=== PATIENT | female | born 1995 | race Caucasian/White ===

== ENCOUNTER 2018-01-02 04:15 | Inpatient (IN) | payer MEDICAID ==
[~2018-01-02] VITALS: Ht 154.9 cm; Wt 86.2 kg
[2018-01-02] MEDS ORDERED: PNV1TABL76 PO (04:54)
[2018-01-02] MEDS ORDERED: DEXT 5%/LR + PITOCIN 20UNITS/L 1,000 ML IV SCH (04:55)
[2018-01-02] MEDS ORDERED: MISOPROSTOL 100MCG TABLET VG SCH (05:00)
[2018-01-02] MEDS ORDERED: BUTORPHANOL TARTRATE 2 MG/ML VIAL IV PRN (05:00)
[2018-01-02] MEDS ORDERED: CARBOPROST TROMETHAMINE 250 MCG/ML AMPUL IM PRN (05:00)
[2018-01-02] MEDS ORDERED: NALOXONE HCL 0.4 MG/ML 1ML VIAL IM PRN (05:00)
[2018-01-02] MEDS ORDERED: METHYLERGONOVINE MALEATE 0.2 MG/ML IM PRN (05:00)
[2018-01-02] MEDS ORDERED: PENICILLIN G POTASSIUM 5 MMU in DEXT 5% WATER 100 ML IV SCH (05:30)
[2018-01-02] MEDS: LACTATED RINGERS 1,000 ML IV SCH ×2 (06:39→09:03)
[2018-01-02 07:28] LABS: BASOPHILS % 0.2 % (0.0-2.0); EOSINOPHILS % 0.4 % (0.0-5.0); HEMATOCRIT. 34.2 % (36.0-48.0); HEMOGLOBIN. 11.5 g/dL (12.0-16.0); LYMPHOCYTES % 16.9 % (20.0-50.0); MEAN CORPUSCULAR HEMOGLOBIN 29.5 pg (28.0-32.0); MEAN CORPUSCULAR VOLUME 87.8 fL (81.0-99.0); MEAN PLATELET VOLUME 9.2 fl (7.4-10.4); MONOCYTES % 8.4 % (2.0-8.0); NEUTROPHILS % 74.1 % (40.0-76.0); PLATELET 238 x1000/uL (130-400); RED CELL DISTRIBUTION WIDTH 14.4 % (11.6-14.6)
[2018-01-02 08:02] LABS: HEPATITIS B SURFACE ANTIGEN NEGATIVE; RUBELLA IGG 23.1 IU/mL (4.99-10)
[2018-01-02 08:04] LABS: INR 0.9; PARTIAL THROMBOPLASTIN TIME 24.2 sec (23.4-31.0); PROTHROMBIN TIME 9.5 sec (9.1-11.1)
[2018-01-02] MEDS ORDERED: BUPIVACAINE HCL/DEXTROSE/PF 0.75% 2ML AMP INJ ONE (08:52)
[2018-01-02] MEDS ORDERED: PHENYLEPHRINE HCL 10 MG/ML 1ML (IV VIAL) IV ONE (08:53)
[2018-01-02] MEDS ORDERED: EPHEDRINE SULFATE 50MG/ML VIAL ONE (08:53)
[2018-01-02 09:20] LABS: CLARITY URINE TURBID (CLEAR); COLOR URINE YELLOW (YELLOW); KETONES URINE NEGATIVE (NEGATIVE); LEUKOCYTE ESTERASE URINE NEGATIVE (NEGATIVE); NITRITE URINE NEGATIVE (NEGATIVE); OCCULT BLOOD URINE 3+ (NEGATIVE); PROTEIN URINE 2+ (NEGATIVE); SPECIFIC GRAVITY URINE 1.006 (1.005-1.030); UROBILINOGEN URINE 0.2 E.U./dL (0.2-1.0)
[2018-01-02] MEDS ORDERED: FENTANYL CITRATE/PF 50MCG/ML 2ML VIAL ONE (09:34)
[2018-01-02 09:37] LABS: *AMPHETAMINES SCREEN URINE NEGATIVE (NEGATIVE); *BARBITURATES SCREEN URINE NEGATIVE (NEGATIVE)
[2018-01-02 09:38] LABS: *COCAINE SCREEN URINE NEGATIVE (NEGATIVE); CANNABINOID URINE SCREEN NEGATIVE (NEGATIVE); METHADONE URINE SCREEN NEGATIVE (NEGATIVE); OPIATES URINE SCREEN NEGATIVE (NEGATIVE); PHENCYCLIDINE URINE SCREEN NEGATIVE (NEGATIVE)
[2018-01-02 09:47] LABS: *BENZODIAZEPINES SCREEN URINE NEGATIVE (NEGATIVE)
[2018-01-02] MEDS ORDERED: PENICILLIN G POTASSIUM 2.5 MMU in DEXTROSE 5% WATER 50 ML IV SCH (10:00)
[2018-01-02] MEDS ORDERED: DIPHENHYDRAMINE 50MG/ML VIAL ONE (10:07)
[2018-01-02] MEDS ORDERED: ONDANSETRON HCL 4MG/2ML INJ IV PRN ×2 (10:15→10:30)
[2018-01-02] MEDS ORDERED: HYDROCODONE/ACETAMINOPHEN 5/325MG TABLET PO PRN (10:15)
[2018-01-02] MEDS ORDERED: RHO(D) IMMUNE GLOBULIN 300 MCG/SYR IM PRN (10:15)
[2018-01-02] MEDS ORDERED: BISACODYL 10MG SUPP PR PRN (10:15)
[2018-01-02] MEDS ORDERED: LANOLIN OINT 0.25 GM TUBE TOP PRN (10:15)
[2018-01-02] MEDS ORDERED: TETANUS, DIPHTHERIA, PERTUSSIS VAC/PF 0.5ML (>7YR OLD) IM ONE (10:15)
[2018-01-02] MEDS ORDERED: ACETAMINOPHEN WITH CODEINE 300/30MG TABLET PO PRN (10:15)
[2018-01-02] MEDS ORDERED: INFLUENZA VIRUS VACCINE(AFLURIA) 0.5ML SYR IM ONE (10:15)
[2018-01-02] MEDS ORDERED: FENTANYL CITRATE/PF 50MCG/ML 2ML VIAL IV PRN ×3 (10:30)
[2018-01-02] MEDS ORDERED: MEPERIDINE HCL/PF 25MG/ML CPJ IV PRN (10:30)
[2018-01-02] MEDS ORDERED: ONDANSETRON HCL 4MG/2ML INJ IM PRN (10:30)
[2018-01-02] MEDS ORDERED: DIPHENHYDRAMINE 50MG/ML VIAL IM PRN (10:30)
[2018-01-02] MEDS ORDERED: DEXAMETHASONE 10 MG/ML VIAL IV PRN (10:30)
[2018-01-02] MEDS ORDERED: DIPHENHYDRAMINE 50MG/ML VIAL IV PRN (10:30)
[2018-01-02] MEDS: DEXT 5%/LR + PITOCIN 20UNITS/L 1,000 ML IV SCH (10:36)
[2018-01-02] MEDS: MAGNESIUM/ALUMINUM HYDROXIDE/SIMETHICONE 30ML UDC PO SCH ×2 (11:57→17:33)
[2018-01-02] MEDS: SIMETHICONE 80MG TABLET CHEW PO SCH ×2 (11:57→17:33)
[2018-01-02 13:15] VITALS: BP 99/50
[2018-01-02 14:15] VITALS: BP 102/58
[2018-01-02 20:00] VITALS: BP 107/78
[2018-01-02] MEDS: KETOROLAC 30MG/ML VIAL IV SCH (20:00)
[2018-01-02] MEDS ORDERED: DIPHENHYDRAMINE 25MG CAPSULE PO PRN (21:00)
[2018-01-03] VITALS: BP 96/53
[2018-01-03] MEDS: DEXT 5%/LR + PITOCIN 20UNITS/L 1,000 ML IV SCH (03:02)
[2018-01-03 04:30] VITALS: BP 100/59
[2018-01-03] MEDS: KETOROLAC 30MG/ML VIAL IV SCH (05:36)
[2018-01-03 07:20] LABS: BASOPHILS % 0.1 % (0.0-2.0); EOSINOPHILS % 0.3 % (0.0-5.0); HEMATOCRIT. 29.8 % (36.0-48.0); HEMOGLOBIN. 10.2 g/dL (12.0-16.0); LYMPHOCYTES % 11.8 % (20.0-50.0); MEAN CORPUSCULAR HEMOGLOBIN 30.2 pg (28.0-32.0); MEAN CORPUSCULAR VOLUME 88.2 fL (81.0-99.0); MEAN PLATELET VOLUME 8.5 fl (7.4-10.4); MONOCYTES % 7.4 % (2.0-8.0); NEUTROPHILS % 80.4 % (40.0-76.0); PLATELET 205 x1000/uL (130-400); RED BLOOD CELL COUNT 3.38 mill/uL (4.2-5.4); RED CELL DISTRIBUTION WIDTH 15.1 % (11.6-14.6)
[2018-01-03 08:00] VITALS: BP 102/58
[2018-01-03] MEDS: SIMETHICONE 80MG TABLET CHEW PO SCH ×3 (09:06→21:57)
[2018-01-03] MEDS: PRENATAL VIT/FE FUMARATE/FA TABLET PO SCH (09:07)
[2018-01-03] MEDS: MAGNESIUM/ALUMINUM HYDROXIDE/SIMETHICONE 30ML UDC PO SCH ×3 (09:11→22:00)
[2018-01-03 11:00] VITALS: BP 127/73
[2018-01-03 16:00] VITALS: BP 98/61
[2018-01-03] MEDS: FERROUS SULFATE 325MG TABLET PO SCH ×2 (17:32→21:57)
[2018-01-03 20:00] VITALS: BP 105/66
[2018-01-03] MEDS: DOCUSATE SODIUM 100MG CAPSULE PO SCH (21:00)
[2018-01-04] VITALS: BP 99/59
[2018-01-04 03:57] VITALS: BP 98/64
[2018-01-04 07:31] VITALS: BP 101/61
[2018-01-04] MEDS: FERROUS SULFATE 325MG TABLET PO SCH ×3 (08:26→17:03)
[2018-01-04] MEDS: MAGNESIUM/ALUMINUM HYDROXIDE/SIMETHICONE 30ML UDC PO SCH ×4 (08:26→20:56)
[2018-01-04] MEDS: SIMETHICONE 80MG TABLET CHEW PO SCH ×4 (08:26→20:56)
[2018-01-04] MEDS: IBUPROFEN 400MG TABLET PO PRN ×2 (08:26→17:03)
[2018-01-04] MEDS: PRENATAL VIT/FE FUMARATE/FA TABLET PO SCH (08:27)
[2018-01-04 15:21] VITALS: BP 95/51
[2018-01-04 20:00] VITALS: BP 115/68
[2018-01-04] MEDS: DOCUSATE SODIUM 100MG CAPSULE PO SCH (20:55)
[2018-01-05] VITALS: BP 109/67
[2018-01-05] MEDS: IBUPROFEN 400MG TABLET PO PRN ×2 (01:10→08:08)
[2018-01-05 04:00] VITALS: BP 121/67
[2018-01-05 07:36] VITALS: BP 101/65
[2018-01-05] MEDS: SIMETHICONE 80MG TABLET CHEW PO SCH (08:08)
[2018-01-05] MEDS: PRENATAL VIT/FE FUMARATE/FA TABLET PO SCH (08:08)
[2018-01-05] MEDS: FERROUS SULFATE 325MG TABLET PO SCH (08:08)
[2018-01-05] MEDS: MAGNESIUM/ALUMINUM HYDROXIDE/SIMETHICONE 30ML UDC PO SCH (08:09)
== END 2018-01-05 12:35 | disposition home or self-care (01) | DRG 540 ==
LOC: L&D 04:15 → OBSVTOIN 04:15 → 7EST PP/OB 13:35
PROVIDERS: ADMIT Specialist; ATTEND Specialist
PROC: 10D00Z1 Extraction of Products of Conception, Low, Open Approach (ICD-10-PCS; principal; 2018-01-02 09:44)
DX: O34.219 Maternal care for unspecified type scar from previous cesarean delivery (principal); D62 Acute posthemorrhagic anemia; Z37.0 Single live birth; O26.62 Liver and biliary tract disorders in childbirth; K80.20 Calculus of gallbladder without cholecystitis without obstruction; O99.62 Diseases of the digestive system complicating childbirth; K27.9 Peptic ulcer, site unspecified, unspecified as acute or chronic, without hemorrhage or perforation; O99.02 Anemia complicating childbirth; Z3A.37 37 weeks gestation of pregnancy; Z87.891 Personal history of nicotine dependence
CPT/HCPCS: 36415; 80305; 81003; 85025; 85610; 85730; 86592; 86703; 86762; 86850; 86900; 86920; 87340; 88307; 99281; J0595; J1200; J1885; J2370; J2540; J2590; J3010; J3490; J7060; J7120; A4315